=== PATIENT | male | born 1980 | race African-American/Black ===

== ENCOUNTER 2017-01-12 16:12 | Emergency (ER) | payer MEDICAID ==
[~2017-01-12] VITALS: Ht 180.3 cm; Wt 73.0 kg
[2017-01-12] MEDS ORDERED: ONDANSETRON HCL 4MG/2ML VIAL IV STA (17:10)
[2017-01-12] MEDS ORDERED: MORPHINE SULFATE 4 MG/ML CPJ (NOT FOR IM USE) IV STA (17:10)
[2017-01-12] MEDS ORDERED: SODIUM CHLORIDE 0.9% 1,000 ML IV ONE (17:10)
[2017-01-12 17:43] LABS: BASOPHILS % 0.5 % (0.0-2.0); EOSINOPHILS % 1.7 % (0.0-5.0); HEMATOCRIT. 41.6 % (42.0-52.0); HEMOGLOBIN. 14.5 g/dL (14.0-18.0); LYMPHOCYTES % 20.1 % (20.0-50.0); MEAN CORPUSCULAR HEMOGLOBIN 31.6 pg (28.0-32.0); MEAN CORPUSCULAR VOLUME 90.8 fL (80.0-94.0); MEAN PLATELET VOLUME 7.8 fl (7.4-10.4); MONOCYTES % 9.8 % (2.0-8.0); NEUTROPHILS % 67.9 % (40.0-76.0); PLATELET 168 x1000/uL (130-400); RED BLOOD CELL COUNT 4.58 mill/uL (4.7-6.1); RED CELL DISTRIBUTION WIDTH 12.9 % (11.6-14.6)
[2017-01-12 17:52] LABS: CHLORIDE 102 mEq/L (98-107)
[2017-01-12 17:54] LABS: CARBON DIOXIDE 28 mEq/L (21-32)
[2017-01-12 18:17] LABS: CLARITY URINE CLEAR (CLEAR); COLOR URINE YELLOW (YELLOW); GLUCOSE URINE NEGATIVE (NEGATIVE); KETONES URINE NEGATIVE (NEGATIVE); LEUKOCYTE ESTERASE URINE NEGATIVE (NEGATIVE); NITRITE URINE NEGATIVE (NEGATIVE); OCCULT BLOOD URINE NEGATIVE (NEGATIVE); PH URINE 8.5 (4.5-8.0); PROTEIN URINE NEGATIVE (NEGATIVE)
[2017-01-12] MEDS ORDERED: DIAZEPAM 5 MG/ML 2ML CPJ IV ONE (18:45)
[2017-01-12] MEDS ORDERED: KETOROLAC 30MG/ML VIAL IV ONE (18:45)
[2017-01-12 20:33] VITALS: BP 104/74
== END 2017-01-12 20:36 | disposition home or self-care (01) ==
LOC: ER 17:19
DX: R10.32 Left lower quadrant pain (principal); R63.0 Anorexia; Z72.0 Tobacco use
CPT/HCPCS: 36415; 74176; 80053; 81003; 83690; 85025; 96374; 96375; 99285; J1885; J2270; J2405; 96361; J7030

== ENCOUNTER 2022-10-26 11:11 | Inpatient (IN) | payer MEDICAID ==
[~2022-10-26] VITALS: Ht 177.8 cm; Wt 78.0 kg
[2022-10-26 12:25] LABS: BASOPHILS % 0.5 % (0.0-2.0); HEMATOCRIT. 43.2 % (42.0-52.0); LYMPHOCYTES % 38.3 % (20.0-50.0); MEAN CORPUSCULAR HEMOGLOBIN 32.5 pg (28.0-32.0); MEAN CORPUSCULAR VOLUME 93.5 fL (80.0-94.0); MEAN PLATELET VOLUME 7.5 fl (7.4-10.4); MONOCYTES % 10.7 % (2.0-8.0); NEUTROPHILS % 47.5 % (40.0-76.0); PLATELET 201 x1000/uL (130-400); RED BLOOD CELL COUNT 4.62 mill/uL (4.7-6.1); RED CELL DISTRIBUTION WIDTH 13.3 % (11.6-14.6)
[2022-10-26 12:34] LABS: CHLORIDE 105 mEq/L (98-107)
[2022-10-26 13:02] LABS: D-DIMER < 0.19 mg/L FEU (<0.50); INR 1.1; PARTIAL THROMBOPLASTIN TIME 28.2 sec (23.4-31.0); PROTHROMBIN TIME 11.6 sec (9.6-11.0)
[2022-10-26 13:07] LABS: CLARITY URINE CLEAR (CLEAR); COLOR URINE YELLOW (YELLOW); KETONES URINE NEGATIVE (NEGATIVE); LEUKOCYTE ESTERASE URINE NEGATIVE (NEGATIVE); NITRITE URINE NEGATIVE (NEGATIVE); OCCULT BLOOD URINE NEGATIVE (NEGATIVE); PROTEIN URINE NEGATIVE (NEGATIVE); SPECIFIC GRAVITY URINE 1.007 (1.005-1.030); UROBILINOGEN URINE 0.2 E.U./dL (0.2-1.0)
[2022-10-26] MEDS ORDERED: MAGNESIUM/ALUMINUM HYDROXIDE/SIMETHICONE 30ML UDC PO PRN (21:45)
[2022-10-26] MEDS ORDERED: ONDANSETRON HCL 4MG/2ML INJ IV PRN (21:45)
[2022-10-26] MEDS ORDERED: GUAIFENESIN 200MG/10ML SUGAR FREE UDC PO PRN (21:45)
[2022-10-26] MEDS ORDERED: NA PHOS,M-B/NA PHOS,DI-BA ENEMA 118ML PR PRN (21:45)
[2022-10-26] MEDS ORDERED: ACETAMINOPHEN 325MG TABLET PO PRN (21:45)
[2022-10-26] MEDS ORDERED: DOCUSATE SODIUM 100MG CAPSULE PO PRN (21:45)
[2022-10-26] MEDS ORDERED: CLONIDINE 0.1MG TABLET PO PRN (21:45)
[2022-10-26] MEDS ORDERED: IPRATROPIUM/ALBUTEROL 0.5-3(2.5)MG/3ML NEB HHN PRN (21:45)
[2022-10-26] MEDS ORDERED: MVI, ADULT NO.1 10 ML, FOLIC ACID 1 MG, THIAMINE HCL 100 MG in DEXT 5%/0.9% NACL 1,000 ML IV ONE ×4 (22:00)
[2022-10-26] MEDS: FAMOTIDINE 20MG TABLET PO SCH (23:10)
[2022-10-27] VITALS: BP 120/80
[2022-10-27 00:52] VITALS: BP 120/80
[2022-10-27] MEDS: IPRATROPIUM/ALBUTEROL 0.5-3(2.5)MG/3ML NEB HHN SCH ×3 (02:38→10:11)
[2022-10-27] MEDS ORDERED: POLYETHYLENE GLYCOL 3350 (17GM) 1 DOSE PACK PO PRN (06:00)
[2022-10-27] MEDS ORDERED: LORAZEPAM 2MG/ML CPJ IM PRN (06:15)
[2022-10-27 06:24] VITALS: BP 125/76
[2022-10-27 08:21] VITALS: BP 122/79
[2022-10-27] MEDS ORDERED: MULTIVITAMINS,THER W-MINERALS TABLET PO SCH (09:00)
[2022-10-27] MEDS ORDERED: FOLIC ACID 1MG TABLET PO SCH (09:00)
[2022-10-27] MEDS: FAMOTIDINE 20MG TABLET PO SCH (10:11)
[2022-10-27 10:38] VITALS: BP 121/70
== END 2022-10-27 11:25 | disposition home or self-care (01) | DRG 203 ==
LOC: ER 11:11 → 7EST 15:18 → ENRESERV 21:07
PROVIDERS: ADMIT Internal Medicine Nephrology; ATTEND Internal Medicine Nephrology
DX: M94.0 Chondrocostal junction syndrome [Tietze] (principal); E16.2 Hypoglycemia, unspecified; F17.210 Nicotine dependence, cigarettes, uncomplicated; J43.9 Emphysema, unspecified; K64.9 Unspecified hemorrhoids; Z20.822 Contact with and (suspected) exposure to COVID-19; K80.20 Calculus of gallbladder without cholecystitis without obstruction; K59.00 Constipation, unspecified; Z63.72 Alcoholism and drug addiction in family; Z28.310 Unvaccinated for COVID-19; Z81.1 Family history of alcohol abuse and dependence
CPT/HCPCS: 36415; 71045; 71260; 74176; 76705; 80053; 81003; 82962; 83880; 84484; 85025; 85379; 87426; 93005; 93970; 94640; 99285; C9803; J3411; J3490; J7042

== ENCOUNTER 2024-07-28 15:19 | Emergency (ER) | payer SELFPAY ==
[~2024-07-28] VITALS: Ht 185.4 cm; Wt 84.0 kg
[2024-07-28 15:31] VITALS: BP 133/82; PULSE 86; RESP 18; TEMP 98.3; O2SAT 99
[2024-07-28] MEDS ORDERED: IBUPROFEN 600MG TABLET PO ONE (15:45)
[2024-07-28] MEDS ORDERED: METH-653 MT (16:49)
[2024-07-28] MEDS ORDERED: LIDO700A30 TP (16:49)
[2024-07-28] MEDS ORDERED: IBUP-2029 MT (16:49)
== END 2024-07-28 17:16 | disposition home or self-care (01) ==
LOC: ER 15:19
DX: S22.32XA Fracture of one rib, left side, initial encounter for closed fracture (principal); F10.90 Alcohol use, unspecified, uncomplicated; X58.XXXA Exposure to other specified factors, initial encounter; Y92.89 Other specified places as the place of occurrence of the external cause; Y93.66 Activity, soccer; Y99.8 Other external cause status; Y90.9 Presence of alcohol in blood, level not specified
CPT/HCPCS: 71101; 99283